=== PATIENT | female | born 1995 | race Two or more races ===

== ENCOUNTER 2022-09-12 08:59 | Outpatient (CLI) | payer OTHER | END 2022-09-12 16:22 | disposition home or self-care (01) | LOC: PRENATAL 08:59 | PROVIDERS: ATTEND Obstetrics & Gynecology Maternal & Fetal Medicine | DX: O36.80X0 Pregnancy with inconclusive fetal viability, not applicable or unspecified (principal); Z3A.12 12 weeks gestation of pregnancy ==

== ENCOUNTER 2022-10-26 21:46 | Emergency (ER) | payer OTHER ==
[~2022-10-26] VITALS: Ht 152.4 cm; Wt 78.0 kg
== END 2022-10-27 05:37 | disposition home or self-care (01) ==
LOC: ER 21:46
DX: O26.892 Other specified pregnancy related conditions, second trimester (principal); Z3A.19 19 weeks gestation of pregnancy; R10.2 Pelvic and perineal pain

== ENCOUNTER 2022-11-06 13:11 | Outpatient (CLI) | payer OTHER | END 2022-11-06 14:25 | disposition home or self-care (01) | LOC: PRENATAL 13:11 | PROVIDERS: ATTEND Obstetrics & Gynecology Maternal & Fetal Medicine | DX: O35.9XX0 Maternal care for (suspected) fetal abnormality and damage, unspecified, not applicable or unspecified (principal); D68.69 Other thrombophilia; O35.3XX0 Maternal care for (suspected) damage to fetus from viral disease in mother, not applicable or unspecified; Z3A.20 20 weeks gestation of pregnancy ==

== ENCOUNTER 2022-11-24 20:39 | Inpatient (IN) | payer OTHER ==
[~2022-11-24] VITALS: Ht 152.4 cm; Wt 77.6 kg
[2022-11-24] MEDS ORDERED: PRENATAL TABLE1 EAC4 PO (20:42)
[2022-11-24] MEDS ORDERED: CHILDREN'S ASPI81 MG PO (20:43)
== END 2022-11-27 16:35 | disposition home or self-care (01) | DRG 805 ==
LOC: LDR 20:39 → SURG 11-25 04:23
PROVIDERS: ADMIT Obstetrics & Gynecology; ATTEND Obstetrics & Gynecology
PROC: BY4CZZZ Ultrasonography of Second Trimester, Single Fetus (ICD-10-PCS; 2022-11-24)
PROC: BU4CZZZ Ultrasonography of Uterus and Ovaries (ICD-10-PCS; 2022-11-24)
PROC: 4A1HXCZ Monitoring of Products of Conception, Cardiac Rate, External Approach (ICD-10-PCS; 2022-11-24)
PROC: 10E0XZZ Delivery of Products of Conception, External Approach (ICD-10-PCS; principal; 2022-11-25)
PROC: 3E033VJ Introduction of Other Hormone into Peripheral Vein, Percutaneous Approach (ICD-10-PCS; 2022-11-25)
DX: O36.4XX0 Maternal care for intrauterine death, not applicable or unspecified (principal); O41.1220 Chorioamnionitis, second trimester, not applicable or unspecified; Z37.1 Single stillbirth; Z3A.22 22 weeks gestation of pregnancy; Z20.822 Contact with and (suspected) exposure to COVID-19